=== PATIENT | female | born 1955 | race Caucasian/White ===

== ENCOUNTER → 2023-08-11 09:02 | Outpatient (REF) | payer MEDICARE, SELFPAY | LOC: RAD 09:02 | PROVIDERS: ATTENDING PHYSICIAN Physician Assistant; FAMILY PHYSICIAN Family Medicine | DX: M81.0 Age-related osteoporosis without current pathological fracture (principal) | CPT/HCPCS: 77080 ==

== ENCOUNTER → 2025-01-11 09:17 | Outpatient (REF) | payer MEDICARE, SELFPAY | LOC: RAD 09:17 | PROVIDERS: ATTENDING PHYSICIAN Internal Medicine Rheumatology; FAMILY PHYSICIAN Family Medicine | DX: Z22.7 Latent tuberculosis (principal) | CPT/HCPCS: 71046 ==

== ENCOUNTER → 2025-02-05 07:56 | Outpatient (REF) | payer MEDICARE, SELFPAY | LOC: RCS 07:56 | PROVIDERS: ATTENDING PHYSICIAN Physician Assistant Medical | DX: E78.2 Mixed hyperlipidemia (principal); M05.79 Rheumatoid arthritis with rheumatoid factor of multiple sites without organ or systems involvement; I10 Essential (primary) hypertension | CPT/HCPCS: 93306 ==